=== PATIENT | male | born 1995 | race African-American/Black ===

== ENCOUNTER 2016-10-25 16:00 | Emergency (ER) | payer OTHER ==
[~2016-10-25] VITALS: Ht 160 cm; Wt 59.0 kg
[2016-10-25] MEDS ORDERED: Cyclobenzaprine 10mg Tab ORAL ONE (17:00)
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
[2016-10-25] MEDS ORDERED: IBUPROFEN600 MG ORAL (17:21)
[2016-10-25] MEDS ORDERED: CYCLOBENZAPRINE10 MG ORAL (17:21)
[2016-10-25 17:22] VITALS: BP 115/80
[2016-10-25 17:32] VITALS: BP 115/80
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
== END 2016-10-25 17:32 | disposition home or self-care (01) ==
LOC: EMR 17:00
DX: S80.02XA Contusion of left knee, initial encounter (principal); S16.1XXA Strain of muscle, fascia and tendon at neck level, initial encounter; V43.52XA Car driver injured in collision with other type car in traffic accident, initial encounter; Y92.410 Unspecified street and highway as the place of occurrence of the external cause; Y99.8 Other external cause status
CPT/HCPCS: 99284

== ENCOUNTER 2017-11-30 13:08 | Emergency (ER) | payer MEDICAID, OTHER ==
[~2017-11-30] VITALS: Ht 160 cm; Wt 56.7 kg
[~2017-11-30 13:08] MED LIST: CYCLOBENZAPRINE10 MG ORAL; IBUPROFEN600 MG ORAL
[2017-11-30 13:22] VITALS: BP 104/68
[2017-11-30] MEDS ORDERED: BENADRYL25 MG ORAL (13:47)
[2017-11-30] MEDS ORDERED: HYDROCORTISONE-30 GM TOPIC (13:47)
--- NOTE | 2017-11-30 13:47 | Emergency Room Report ---
History of Present Illness General Chief Complaint: Skin Rash/Abscess Source: Patient Present Illness HPI 22-year-old male patient presents to ER complaining of bumps on his body for the past week. Patient reports symptoms, and gone during this time. patient reports that they are "sort of" itchy. Patient reports symptoms have persisted past few days. Patient reports no fever, chest pain, shortness of breath, vomiting. Patient reports no other symptoms. Patient reports no contacts at home with similar symptoms. Patient reports that he lives at home. Patient denies sores on his palms or soles of his feet. Patient presented has not taken any medication for treatment of symptoms. patient denies bleeding, pus, blisters,open sores. Reports up to date on vaccinations. Allergies: Coded Allergies: No Known Allergies (Unverified , 10/25/16) Patient History Past Medical History: see triage record Reviewed Nursing Documentation: PMH: Agreed; PSxH: Agreed Nursing Documentation-PMH Past Medical History: No Stated History Review of Systems All Other Systems: negative except mentioned in HPI Physical Exam Vital Signs Date Time Temp Pulse Resp B/P (MAP) Pulse Ox O2 Delivery O2 Flow Rate FiO2 11/30/17 13:14 98.4 63 16 104/68 95 Room Air 98.4 Sp02 EP Interpretation: reviewed, normal General Appearance: well appearing, no apparent distress, alert, GCS 15, non- toxic Head: normocephalic, atraumatic Eyes: bilateral eye normal inspection, bilateral eye PERRL ENT: hearing grossly normal, normal pharynx, no angioedema, normal voice, uvula midline, moist mucus membranes Respiratory: lungs clear, normal breath sounds, no rhonchi, no respiratory distress, no accessory muscle use, no wheezing, speaking full sentences Musculoskeletal: back normal, digits/nails normal, gait/station normal, normal range of motion, non-tender Neurologic: alert, oriented x3, responsive, motor strength/tone normal, sensory intact Psychiatric: mood/affect normal Skin: rash - aproximaltely 16 diffusely spread macules and papules over chest and abdomen, <1cm, no bleeding, no active drainage, no blisters, not in dermatomal pattern, no linear burrows Medical Decision Making PA Attestation Dr. Chavez is my supervising Physician whom patient management has been discussed with. Diagnostic Impression: Primary Impression: Rash and other nonspecific skin eruption ER Course Pt. presents to the ED c/o rash. Ddx considered but are not limited to atopic dermatitis, scabies, shingles, allergic reaction, pityriasis rosea, tinea. Vital signs: are WNL, pt. is afebrile Ordered medication. ER COURSE PE no multiple lesions in single dermatome, no Ita tree pattern, no scaling or central clearing, no satellite lesions, no vesicles, no blisters, no skin sloughing. low suspicion for pityriasis rosea, shingles, fungal infection, ringworm. Provided patient with Benadryl. Followup with dermatology. Wash all clothes and bedding. Return if symptoms worsen Low suspicion for scabies but will provide treatment. DISCHARGE: -Rx given for Benadryl for pruritis. -Rx given for Hydrocortisone cream, apply small amount to effected area -Rx given fro Permethrin At this time pt. is stable for d/c to home. Patient resting comfortably, in no acute distress, nontoxic appearing, smiling and texting on his phone. Will provide printed patient care instructions, and any necessary prescriptions. Care plan and follow up instructions have been discussed with the patient prior to discharge. Patient provided with list of healthcare clinics to establish primary care physician. Patient instructed to follow-up with primary care provider in 3 - 5 days. Patient questions asked and answered. ER precautions given. Patient instructed to return to ER immediately for any new or worsening of symptoms including but not limited to increasing SOB, persistent fever. - Please note that this Emergency Department Report was dictated using [employer] and insurance consultant technology software, occasionally this can lead to erroneous entry secondary to interpretation by the dictation equipment. Last Vital Signs Date Time Temp Pulse Resp B/P (MAP) Pulse Ox O2 Delivery O2 Flow Rate FiO2 11/30/17 13:22 98.4 16 104/68 95 Room Air 98.4 11/30/17 13:14 63 Disposition: HOME, SELF-CARE Condition: Stable Scripts Permethrin* (ELIMITE*) 60 Gm Cream..g. 1 APPLIC TOPIC ONCE, #60 GM 0 Refills Apply cream from head to toe; leave on for 8-14 hours before washing off with water; may reapply in 1 week if live mites appear. Prov: Sergio Hogan 11/30/17 Hydrocortisone/Aloe Vera 1%* (HYDROCORTISONE-ALOE 1% CREAM*) Y Cr 1 APPLIC TOPIC Q6H PRN for Itching, #30 GM Prov: Sergio Hogan 11/30/17 Diphenhydramine Hcl* (BENADRYL*) 25 Mg Capsule 25 MG ORAL Q6H PRN for Itching, #15 CAP Prov: Sergio Hogan 11/30/17 Patient Instructions: Rash Additional Instructions: Followup with primary care provider in 3 -5 days. Discuss referral to Derm. Take medications as directed. Patient questions asked and answered. ER precautions given, patient instructed to return to ER immediately for any new or worsening of symptoms. Sergio Hogan November 30, 2017 13:47
[2017-11-30] MEDS ORDERED: PERMETHRIN60 GM TOPIC (13:58)
[2017-11-30 14:14] VITALS: BP 104/68
== END 2017-11-30 14:40 | disposition home or self-care (01) ==
LOC: EMR 13:28
DX: R21 Rash and other nonspecific skin eruption (principal)
CPT/HCPCS: 99284